=== PATIENT | female | born 1985 | race American Indian/Alaskan Native ===

== ENCOUNTER 2017-05-28 13:22 | Emergency (ER) | payer OTHER ==
[2017-05-28] MEDS ORDERED: DUONEB *Not for PRN Use IH ONE ×2 (13:44→13:50)
[2017-05-28] MEDS ORDERED: DECADRON IM ONE (13:50)
--- NOTE | 2017-05-28 14:30 | Emergency Department Report ---
ED Asthma HPI - General Chief Complaint: Adult Asthma Stated Complaint: ASTHMA/DAVID Time Seen by Provider: 05/28/17 13:51 Source: patient Mode of arrival: Ambulatory Limitations: No Limitations - History of Present Illness Initial Comments: This is a 32-year-old female nontoxic, well nourished in appearance, no acute signs of distress presents to the ED with c/o of wheezing and shortness of breath x2 days. Patient stated this happens yearly during pollen season. Patient denies any cough. Patient denies any recent travels, long car, recent hospital stays. Patient denies any calf pain or calf tenderness. Patient denies any chest pain, short of breath, fever, chills, nausea, vomiting, hemoptysis, numbness, tingling, headache or stiff neck. Patient denies any drug allergies. PMH includes asthma. MD Complaint: "asthma attack", wheezing -: days(s) (2) Asthma History: childhood onset Severity: mild Context: none known Associated Symptoms: none - Related Data Current Asthma Therapy: none Previous Rx's Medication Instructions Recorded Last Taken Type ALBUTEROL Inhaler [ProAir HFA 2 puff IH QID PRN #1 inhalation 01/30/13 Unknown Rx Inhaler] predniSONE [Deltasone] 50 mg PO QDAY #4 tab 01/30/13 Unknown Rx Butalbit/Acetamin/Caff/Codeine 1 cap PO Q6HR PRN #14 cap 09/11/14 Unknown Rx [Fioricet/Codeine 95-194-77-30] Ibuprofen [Motrin 600 MG tab] 600 mg PO Q8H PRN #60 tablet 09/11/14 Unknown Rx Meclizine [Antivert] 25 mg PO TID PRN #10 tablet 09/11/14 Unknown Rx ALBUTEROL Inhaler [ProAir HFA 2 puff IH QID PRN #1 inhalation 05/28/17 Unknown Rx Inhaler] Prednisone [predniSONE 10 mg 10 mg PO .TAPER #1 tab.ds.pk 05/28/17 Unknown Rx (6-Day Pack, 21 Tabs)] Allergies Allergy/AdvReac Type Severity Reaction Status Date / Time No Known Allergies Allergy Unverified 01/30/13 09:59 ED Review of Systems ROS: Stated complaint: ASTHMA/DAVID Other details as noted in HPI Constitutional: denies: chills, fever Eyes: denies: eye pain, eye discharge, vision change ENT: denies: ear pain, throat pain Respiratory: shortness of breath, wheezing. denies: cough Cardiovascular: denies: chest pain, palpitations Endocrine: no symptoms reported Gastrointestinal: denies: abdominal pain, nausea, diarrhea Genitourinary: denies: urgency, dysuria, discharge Musculoskeletal: denies: back pain, joint swelling, arthralgia Skin: denies: rash, lesions Neurological: denies: headache, weakness, paresthesias Psychiatric: denies: anxiety, depression Hematological/Lymphatic: denies: easy bleeding, easy bruising ED Past Medical Hx - Past Medical History Previous Medical History?: Yes Hx Asthma: Yes - Surgical History Past Surgical History?: Yes Additional Surgical History: - Social History Smoking Status: Never Smoker Substance Use Type: Prescribed - Medications Home Medications: Home Medications Medication Instructions Recorded Confirmed Last Taken Type ALBUTEROL Inhaler [ProAir HFA 2 puff IH QID PRN #1 inhalation 01/30/13 Unknown Rx Inhaler] predniSONE [Deltasone] 50 mg PO QDAY #4 tab 01/30/13 Unknown Rx Butalbit/Acetamin/Caff/Codeine 1 cap PO Q6HR PRN #14 cap 09/11/14 Unknown Rx [Fioricet/Codeine 99-816-79-30] Ibuprofen [Motrin 600 MG tab] 600 mg PO Q8H PRN #60 tablet 09/11/14 Unknown Rx Meclizine [Antivert] 25 mg PO TID PRN #10 tablet 09/11/14 Unknown Rx ALBUTEROL Inhaler [ProAir HFA 2 puff IH QID PRN #1 inhalation 05/28/17 Unknown Rx Inhaler] Prednisone [predniSONE 10 mg 10 mg PO .TAPER #1 tab.ds.pk 05/28/17 Unknown Rx (6-Day Pack, 21 Tabs)] ED Physical Exam - General Limitations: No Limitations General appearance: alert, in no apparent distress - Head Head exam: Present: atraumatic, normocephalic - Eye Eye exam: Present: normal appearance Pupils: Present: normal accommodation - ENT ENT exam: Present: normal exam, normal orophraynx, mucous membranes moist, TM's normal bilaterally, normal external ear exam - Neck Neck exam: Present: normal inspection, full ROM. Absent: tenderness, meningismus - Respiratory Respiratory exam: Present: normal lung sounds bilaterally, wheezes (bilateral upper and lower lobes). Absent: respiratory distress, rales, rhonchi, stridor, chest wall tenderness, accessory muscle use, decreased breath sounds, prolonged expiratory - Cardiovascular Cardiovascular Exam: Present: regular rate, normal rhythm, normal heart sounds. Absent: irregular rhythm, systolic murmur, diastolic murmur, rubs, gallop - GI/Abdominal GI/Abdominal exam: Present: soft, normal bowel sounds. Absent: distended, tenderness, guarding, rebound, rigid, diminished bowel sounds - Rectal Rectal exam: Present: deferred - Extremities Exam Extremities exam: Present: normal inspection, full ROM, normal capillary refill. Absent: tenderness - Back Exam Back exam: Present: normal inspection, full ROM - Neurological Exam Neurological exam: Present: alert, oriented X3, normal gait - Psychiatric Psychiatric exam: Present: normal affect, normal mood - Skin Skin exam: Present: warm, dry, intact, normal color. Absent: rash ED Course Vital Signs 05/28/17 05/28/17 05/28/17 13:41 13:56 14:34 Temperature 98.1 F Pulse Rate 95 H Pulse Rate [ 81 81 Posterior Bilateral Throughout] Respiratory 24 Rate Respiratory 20 18 Rate [Posterior Bilateral Throughout] Blood Pressure 146/96 O2 Sat by Pulse 99 Oximetry - Reevaluation(s) Reevaluation #1: 05/28/17 14:29 Patient is speaking in full sentences with no signs of distress noted. ED Medical Decision Making - Medical Decision Making This is a 32-year-old female that presents with asthma exacerbation. Patient is stable and was examined by me. Chest x-ray has been obtained and dictated by the radiologist within normal limits. Patient is notified of the x-ray report with no questions noted by the patient. Patient did receive DuoNeb and steroids in the ED which patient the symptoms has resolved and subsided. Posttreatment and there is no wheezing upon auscultation. Patient is discharged with albuterol and prednisone. Patient was referred to Follow-up with a primary care doctor in 3-5 days or if symptoms worsen and continue return to emergency room as soon as possible. At time of discharge, the patient does not seem toxic or ill in appearance. No acute signs of distress noted. Patient agrees to discharge treatment plan of care. No further questions noted by the patient. This chart is dictated with using [employer] Dictation Program Critical care attestation.: If time is entered above; I have spent that time in minutes in the direct care of this critically ill patient, excluding procedure time. ED Disposition Clinical Impression: Asthma exacerbation Qualifiers: Asthma severity: mild Asthma persistence: intermittent Qualified Code(s): J45.21 - Mild intermittent asthma with (acute) exacerbation Disposition: TO HOME OR SELFCARE Is pt being admited?: No Does the pt Need Aspirin: No Condition: Stable Instructions: Asthma (ED) Additional Instructions: Follow-up with a primary care doctor in 3-5 days or if symptoms worsen and continue return to emergency room as soon as possible. Prescriptions: ALBUTEROL Inhaler [ProAir HFA Inhaler] 2 puff IH QID PRN #1 inhalation PRN Reason: Shortness Of Breath Prednisone [predniSONE 10 mg (6-Day Pack, 21 Tabs)] 10 mg PO .TAPER #1 tab.ds.pk Referrals: PRIMARY CAREMD [Primary Care Provider] - 3-5 Days ANTHONY ARREDONDO MD [Staff Physician] - 3-5 Days [facility] [Outside] - 3-5 Days [facility] [Outside] - 3-5 Days Forms: Work/School Release Form(ED)
--- NOTE | 2017-05-28 16:35 | XRay Report ---
FINAL REPORT EXAM: XR CHEST ROUTINE 2V HISTORY: asthma with upper back pain, chest tightness TECHNIQUE: Two views of the chest Comparison: None FINDINGS: Normal heart size. Lungs are clear and well expanded without focal infiltrate or consolidation. Lung volumes are normal to slightly increased. Are ill-defined nodules projecting over each lung base most suggestive of patient's nipples. No pleural effusion. Unremarkable thoracic spine. IMPRESSION: No acute cardiopulmonary disease. No significant air trapping.
[2017-05-28 17:00] VITALS: BP 119/74
== END 2017-05-28 17:01 | disposition home or self-care (01) ==
LOC: ED 13:22
DX: J45.901 Unspecified asthma with (acute) exacerbation (principal)
CPT/HCPCS: 71046; 94640; 96372; 99283; J1100

== ENCOUNTER 2018-10-09 17:41 | Emergency (ER) | payer OTHER ==
[2018-10-09] MEDS ORDERED: TYLENOL PO ONE (19:07)
[2018-10-09] MEDS ORDERED: PROVENTIL IH ONE (19:07)
--- NOTE | 2018-10-09 19:07 | Emergency Department Report ---
Minor Respiratory - HPI Chief Complaint: Adult Asthma Stated Complaint: ASTHMA ATTACK Time Seen by Provider: 10/09/18 18:43 Duration: 3 Days Pain Location: Chest Severity: mild Minor Respiratory: Yes Able to Tolerate Fluids, No Rhinorrhea, No Sore Throat, No Ear Pain, No Cough, No Sick Contacts, No Hemoptysis, No Chest Pain, No Shortness of Breath, No Fever Other History: 33 YO AA FEMALE WITH ASTHMA WHO COMES IN WHEEZING. NO FEVER O CHILLS. NO PURULENT SPUTUM. NO CP. NO SOB. AMBULATING WITHOUT DIFFICULTY. 23 W WITH UNCOMPLICATED . ED Review of Systems ROS: Stated complaint: ASTHMA ATTACK Other details as noted in HPI Comment: All other systems reviewed and negative ED Past Medical Hx - Past Medical History Previous Medical History?: Yes Hx Asthma: Yes - Surgical History Past Surgical History?: Yes Additional Surgical History: - Family History Family history: no significant - Social History Smoking Status: Never Smoker Substance Use Type: Prescribed - Medications Home Medications: Home Medications Medication Instructions Recorded Confirmed Last Taken Type ALBUTEROL Inhaler (OR & NICU) 2 puff IH QID PRN #1 inhalation 01/30/13 Unknown Rx [ProAir HFA Inhaler] predniSONE [Deltasone] 50 mg PO QDAY #4 tab 01/30/13 Unknown Rx Butalbit/Acetamin/Caff/Codeine 1 cap PO Q6HR PRN #14 cap 09/11/14 Unknown Rx [Fioricet/Codeine 43-223-49-30] Ibuprofen [Motrin 600 MG tab] 600 mg PO Q8H PRN #60 tablet 09/11/14 Unknown Rx Meclizine [Antivert] 25 mg PO TID PRN #10 tablet 09/11/14 Unknown Rx ALBUTEROL Inhaler (OR & NICU) 2 puff IH QID PRN #1 inhalation 05/28/17 Unknown Rx [ProAir HFA Inhaler] Prednisone [predniSONE 10 mg 10 mg PO .TAPER #1 tab.ds.pk 05/28/17 Unknown Rx (6-Day Pack, 21 Tabs)] ALBUTEROL NEB's [Proventil 0.083% 2.5 mg IH TID PRN #1 box 10/09/18 Unknown Rx NEBS] predniSONE [Deltasone] 50 mg PO QDAY #5 tab 08/27/19 Unknown Rx Minor Respiratory Exam - Exam General: Vital signs noted. No distress. Alert and acting appropriately. HEENT: Yes Moist Mucous Membranes, No Pharyngeal Erythema, No Pharyngeal Exudates, No Rhinorrhea, No Conjuctival Injection, No Frontal Tenderness, No Maxillary Tenderness Ear: Neither TM Bulge, Neither TM Erythema, Neither EAC Pain, Neither EAC Discharge Neck: Yes Supple, No Adenopathy Lungs: Yes Good Air Exchange, Yes Wheezes, No Ronchi, No Stridor, No Cough Abdomen: Yes Normal Bowel Sounds, No Tenderness, No Peritoneal Signs Skin: Yes Rash Neurologic: Alert and oriented, no deficits. Musculoskeletal: Unremarkable. ED Medical Decision Making - Medical Decision Making DUONEB WITH RELIEF NO INDICATION FOR ANTIBIOTICS. NO FEVER/CHILLS/ CP/SOB/ SPUTUM CALLED OB THIS AM WHO COULD NOT SEE HERE SHE USES HOME ALB INHALER. DISCUSSED WITH PT THE FACT THAT SHE WOULD BENEFIT FROM A SHORT COURSE OF PRE DNISONE BUT THAT SHE SHOULD CALL OB IN AM AND GET IT APPROVED. - Differential Diagnosis asthma w or wo infection Critical care attestation.: If time is entered above; I have spent that time in minutes in the direct care of this critically ill patient, excluding procedure time. ED Disposition Clinical Impression: Asthma Disposition: DC-01 TO HOME OR SELFCARE Is pt being admited?: No Does the pt Need Aspirin: No Condition: Stable Instructions: Asthma (ED) Additional Instructions: CALL OBGYN IN THE AM AND GET APPROVAL FOR THE STEROIDS BEFORE STARTING THEM. ASK TO SPEAK WITH THE NURSE, SHE SHOULD BE ABLE TO GET THE DOCTOR WHO CAN DISCUSS WITH YOU NEBULIZER ORDERED TONIGHT Prescriptions: predniSONE [Deltasone] 50 mg PO QDAY #5 tab ALBUTEROL NEB's [Proventil 0.083% NEBS] 2.5 mg IH TID PRN #1 box PRN Reason: Wheezing Referrals: SHIRA PRYOR MD [Staff Physician] - 3-5 Days [facility] [Outside] - 3-5 Days Time of Disposition: 19:12
[2018-10-09 20:36] VITALS: BP 128/75
== END 2018-10-09 20:35 | disposition home or self-care (01) ==
LOC: ED 17:41
DX: O99.512 Diseases of the respiratory system complicating pregnancy, second trimester (principal); J45.909 Unspecified asthma, uncomplicated; Z79.899 Other long term (current) drug therapy; Z3A.23 23 weeks gestation of pregnancy

== ENCOUNTER 2018-12-31 17:51 | Inpatient (IN) | payer OTHER ==
[2018-12-31] MEDS ORDERED: LACTATED RINGERS 500 ML IV ONE (19:00)
[2018-12-31] MEDS ORDERED: LACTATED RINGERS 1,000 ML IV ONE (19:20)
[2018-12-31 19:35] LABS: Hemoglobin 10.7 gm/dl (10.1-14.3); Mean Corpuscular HGB Conc 33 % (30-34); Mean Corpuscular Volume 81 fl (79-97); Platelet Count 205 K/mm3 (140-440); Red Blood Count 4.08 M/mm3 (3.65-5.03); Red Cell Distribution Width 16.7 % (13.2-15.2)
[2018-12-31] MEDS ORDERED: FAMOTIDINE 20 MG/2 ML INJ IV SCH (20:34)
[2018-12-31] MEDS ORDERED: BICITRA ORAL LIQD 30ML PO SCH (20:34)
[2018-12-31] MEDS ORDERED: METOCLOPRAMIDE 10 MG/2 ML INJ IV SCH (20:34)
--- NOTE | 2018-12-31 20:43 | Ultrasound Report ---
US OB limited INDICATION / CLINICAL INFORMATION: Unstable lie, SROM. COMPARISON: None available. FINDINGS: Single, viable intrauterine , currently in breech presentation. heart rate 135. Amniotic fluid volume is abnormally increased, with a fluid index of 32 cm. IMPRESSION: 1. Increased amniotic fluid volume. 2. Breech presentation. Signer Name: Abdirahman Patterson MD Signed: 12/31/2018 8:39 PM Workstation Name: [id number]
--- NOTE | 2018-12-31 20:55 | Anesthesia Day of Surgery ---
Anesthesia Day of Surgery - Day of Surgery Patient Examined: Yes Patient H&P Reviewed: Yes Patient is NPO: Yes
--- NOTE | 2018-12-31 20:55 | Anesthesia Consultation ---
Anesthesia Consult and Med Hx Date of service: 12/31/18 - Airway Anesthetic Teeth Evaluation: Good ROM Head & Neck: Adequate Mental/Hyoid Distance: Adequate Mallampati Class: Class II Intubation Access Assessment: Probably Good - Pulmonary Exam CTA: Yes - Cardiac Exam Cardiac Exam: RRR - Pre-Operative Health Status ASA Pre-Surgery Classification: ASA2 Proposed Anesthetic Plan: Spinal - Pulmonary Hx Asthma: Yes (last attack 11/2018) - Cardiovascular System Hx Hypertension: No - Central Nervous System Hx Seizures: No Hx Psychiatric Problems: No - Endocrine Hx Renal Disease: No Hx Hypothyroidism: No Hx Hyperthyroidism: No - Hematic Hx Anemia: No Hx Sickle Cell Disease: No - Other Systems Hx Alcohol Use: No
[2018-12-31] MEDS ORDERED: LACTATED RINGERS 1,000 ML IV SCH (21:00)
[2018-12-31] MEDS ORDERED: ceFAZolin/Water 2 GM/20 ML 2 GM/20 ML SYRINGE IV NR (21:00)
[2018-12-31] MEDS ORDERED: OXYTOCIN 20 UNIT/1000ML DRIP 20 UNITS/1,000 ML BAG IV SCH ×2 (21:00→23:45)
[2018-12-31] MEDS ORDERED: SODIUM CHLORIDE 0.9% IRR 1,500 ML BOTTLE IR ONE (21:55)
[2018-12-31] MEDS ORDERED: WATER FOR IRRIG STERILE 1,500 ML BOTTLE IR ONE (21:55)
--- NOTE | 2018-12-31 21:59 | History and Physical Report ---
History of Present Illness Date of examination: 12/31/18 Date of admission: 12/31/18 20:50 Chief complaint: SROM History of present illness: Pt is a 33yo BF EDC 01/30/19; EGA 35 5/7 weeks presents to [facility] complaining of leaking fluid, confirmed on exam. Ob u/s showed ERLIN 31.9 and Breech. She received care at [facility] since 16 weeks and co-managed by [facility] for polyhydramnios and previous C Section. records are available, but GBS is unknown. Past History Past Medical History: asthma Past Surgical History: section Social history: no significant social history - Obstetrical History Expected Date of Delivery: 01/30/19 Actual Gestation: 35 Week(s) 5 Day(s) : 3 Medications and Allergies Allergies Allergy/AdvReac Type Severity Reaction Status Date / Time No Known Allergies Allergy Unverified 01/30/13 09:59 Home Medications Medication Instructions Recorded Confirmed Last Taken Type ALBUTEROL Inhaler (OR & NICU) 2 puff IH QID PRN #1 inhalation 01/30/13 Unknown Rx [ProAir HFA Inhaler] predniSONE [Deltasone] 50 mg PO QDAY #4 tab 01/30/13 Unknown Rx Butalbit/Acetamin/Caff/Codeine 1 cap PO Q6HR PRN #14 cap 09/11/14 Unknown Rx [Fioricet/Codeine 35-949-97-30] Ibuprofen [Motrin 600 MG tab] 600 mg PO Q8H PRN #60 tablet 09/11/14 Unknown Rx Meclizine [Antivert] 25 mg PO TID PRN #10 tablet 09/11/14 Unknown Rx ALBUTEROL Inhaler (OR & NICU) 2 puff IH QID PRN #1 inhalation 05/28/17 Unknown Rx [ProAir HFA Inhaler] Prednisone [predniSONE 10 mg 10 mg PO .TAPER #1 tab.ds.pk 05/28/17 Unknown Rx (6-Day Pack, 21 Tabs)] ALBUTEROL NEB's [Proventil 0.083% 2.5 mg IH TID PRN #1 box 10/09/18 Unknown Rx NEBS] methylPREDNISolone [Medrol 4MG 4 mg PO FS #1 tab.ds.pk 10/09/18 Unknown Rx DOSEPAK (21 tabs)] Active Meds: Active Medications Citric Acid/Sodium Citrate (Bicitra) 30 ml PO ONCE CHANNING Stop: 01/01/19 20:33 Last Admin: 12/31/18 21:26 Dose: 30 ml Documented by: Famotidine (Pepcid) 20 mg IV ONCE CHANNING Stop: 01/01/19 20:33 Last Admin: 12/31/18 21:26 Dose: 20 mg Documented by: Oxytocin/Sodium Chloride (Pitocin/Ns 20 Unit/1000ml Drip) 20 units in 1,000 mls @ 0 mls/hr IV TITR CHANNING Lactated Ringer's (Lactated Ringers) 1,000 mls @ 2,250 mls/hr IV PREOP CHANNING Stop: 01/01/19 21:27 Last Admin: 12/31/18 21:27 Dose: 2,250 mls/hr Documented by: Cefazolin Sodium (Ancef/Sterile Water 2 Gm/20 Ml) 2 gm in 20 mls @ 80 mls/hr IV PREOP NR; Protocol Stop: 01/01/19 20:59 Last Admin: 12/31/18 21:42 Dose: 80 mls/hr Documented by: Metoclopramide HCl (Reglan) 10 mg IV ONCE CHANNING Stop: 01/01/19 20:33 Last Admin: 12/31/18 21:26 Dose: 10 mg Documented by: Review of Systems All systems: negative - Vital Signs Vital signs: Vital Signs Pulse BP 82 123/78 12/31/18 18:08 12/31/18 18:08 Temp Pulse Resp BP Pulse Ox 98.1 F 68 18 122/72 12/31/18 19:48 12/31/18 19:39 12/31/18 19:48 12/31/18 19:39 - Physical Exam Breasts: Positive: deferred Cardiovascular: Regular rate Lungs: Positive: Clear to auscultation Abdomen: Positive: normal appearance Genitourinary (Female): Positive: normal external genitalia Vagina: Positive: normal moisture Uterus: Positive: enlarged Extremities: Positive: normal - Obstetrical FHR: category 1 Uterine Contraction Pattern: Irregular Uterine Tone Measurement Phase: Contraction Uterine Contraction Intensity: Mild Results Result Diagrams: 12/31/18 19:10 Abnormal lab results 12/31/18 Range/Units 19:10 MCH 26 L (28-32) pg RDW 16.7 H (13.2-15.2) % All other labs normal. Ultrasound: report reviewed (Breech) Assessment and Plan - Patient Problems (1) 35 weeks gestation of Onset Date: 12/31/18 Current Visit: Yes Status: Acute Plan to address problem: A: IUP @ 35 weeks PPROM labor Previous C Section Breech presentation P: Admit to L&D for Repeat C Section (2) labor in third trimester Onset Date: 12/31/18 Current Visit: Yes Status: Acute Qualifiers: labor delivery status: with delivery in third trimester Fetus number: single or unspecified fetus Qualified Code(s): O60.14X0 - labor third trimester with delivery third trimester, not applicable or unspecified (3) Breech presentation Onset Date: 12/31/18 Current Visit: Yes Status: Acute Qualifiers: Fetus number: single or unspecified fetus Qualified Code(s): O32.1XX0 - Maternal care for breech presentation, not applicable or unspecified (4) Polyhydramnios affecting in third trimester Onset Date: 12/31/18 Current Visit: Yes Status: Acute
[2018-12-31] MEDS ORDERED: PHENYLEPHRINE/NS 1,000 MCG/10 ML SYRINGE (OR USE) IV ONE (22:19)
[2018-12-31] MEDS ORDERED: KETOROLAC 30 MG/1 ML INJ ONE (22:19)
[2018-12-31] MEDS ORDERED: BUPIVACAINE/PF (0.5%) 5 MG/1 ML 30 ML VIAL INFILTRATI ONE (22:19)
[2018-12-31] MEDS ORDERED: DEXMEDETOMIDINE 200 MCG/2 ML VIAL IV ONE (22:19)
[2018-12-31] MEDS ORDERED: OXYTOCIN 10 UNIT/1 ML INJ ONE (22:19)
[2018-12-31] MEDS ORDERED: LACTATED RINGERS 1,000 ML ONE (22:29)
--- NOTE | 2018-12-31 23:06 | Operative Report ---
Operative Report Operative Report: Date of procedure: 12/31/2018 Pre-operative diagnosis: 1. Intrauterine at 35 5/7 weeks 2. Previ ous C Section 3. Premature Rupture of Membranes 4. Labor 5. Breech presentation Post-operative diagnosis: same Procedure name(s): Repeat low transverse section Surgeon: Roberto Carlos Mendoza MD Shipping And Receiving Associate: None Anesthesia: Spinal anesthesia by Jose Juan Mays CRNA EBL: 500 mL's Findings: A 2547 gm male infant Apgars 8 at 1 minute 9 at 5 minutes. Copious clear amniotic fluid. Normal uterus. Normal tubes and ovaries bilaterally. Procedure: After the patient was prepped and draped in usual sterile fashion, and after satisfactory level of spinal anesthesia was obtained, the skin knife was used to make a transverse skin incision through the previous skin scar. The incision was incised down to layer of the fascia, which was nicked in the midline and extended laterally using the Bovie cautery. The rectus muscles were dissected off the rectus fascia both superiorly and inferiorly. The rectus bellies in the midline, and the peritoneum was entered under direct visualization. The peritoneal incision was extended superiorly and inferiorly. A bladder flap was created and the bladder blade was then placed. The uterus was scored in a curvilinear linear fashion, entered in the midline revealing copious clear amniotic fluid. The 's head was delivered onto the surgical field with the aid of a vacuum, and the oropharynx and nasopharynx were bulb suctioned. The rest of the 's body was delivered, cord was doubly clamped and cut and the was handed to the awaiting respiratory team. Cord blood was then obtained. The placenta was manually removed from the uterus, and the uterus removed from its normal anatomical position. After gentle uterine lavage, the incision was inspected and found to be without extensions. It was then closed in 2 layers using 0 Vicryl suture in a running interlocking fashion, the second layer imbricating the first. After good hemostasis was achieved, copious amounts or irrigation was performed, and the gutters were suctioned free of blood and blood clots. The peritoneum was re-approximated using 3-0 Vicryl suture in a running interlocking fashion, and then the rectus muscles were re- approximated using 3-0 Vicryl suture in a [id number] configuration. The fascia was then re-approximated using 0 Vicryl suture in running interlocking fashion. The subcutaneous layer was made hemostatic using Bovie cautery, and the skin edges re-approximated using 4-0 Vicryl suture in a sub-cuticular fashion. Patient tolerated the procedure well was transported to recovery in stable condition.
[2018-12-31] MEDS ORDERED: PROMETHAZINE 25 MG RECT SUPP PR PRN (23:15)
[2018-12-31] MEDS ORDERED: HYDROcodone/ACETAMINOPHEN 5-325 MG TAB PO PRN (23:15)
[2018-12-31] MEDS ORDERED: SIMETHICONE 80 MG CHEW TAB PO PRN (23:15)
[2018-12-31] MEDS ORDERED: KETOROLAC 30 MG/1 ML INJ IV PRN (23:15)
[2018-12-31] MEDS ORDERED: ACETAMINOPHEN 325 MG TAB PO PRN (23:15)
[2018-12-31] MEDS ORDERED: LANOLIN/ZINC/DIMETHICONE (LANSINOH) 7 GM TP PRN (23:15)
[2018-12-31] MEDS ORDERED: MAGNESIUM HYDROXIDE (MOM) ORAL LIQD UDC PO PRN (23:15)
[2018-12-31] MEDS ORDERED: WITCH HAZEL/ GLYCERIN PAD TP PRN (23:15)
[2018-12-31] MEDS ORDERED: ONDANSETRON 4 MG/2 ML INJ IV PRN (23:15)
[2018-12-31] MEDS ORDERED: NALOXONE 0.4 MG/1 ML INJ IV PRN (23:15)
[2018-12-31] MEDS ORDERED: SENNOSIDES 8.6 MG TAB PO PRN (23:15)
[2018-12-31] MEDS ORDERED: NalbUPHINE 10 MG/1 ML INJ IV PRN (23:17)
--- NOTE | 2018-12-31 23:17 | Post Anesthesia Evaluation ---
- Post Anesthesia Evaluation Patient Participated: Yes Airway Patent: Yes Stable Respiratory Function: Yes Nausea/Vomiting: No Temp > 96.8F: Yes Pain Manageable: Yes Adequeate Hydration: Yes Anesthesia Complications: No Block Receding Appropriately: Yes
[2019-01-01] MEDS: KETOROLAC 30 MG/1 ML INJ IV SCH ×4 (00:28→18:13)
[2019-01-01] MEDS: ACETAMINOPHEN 325 MG TAB PO SCH ×4 (00:28→18:31)
[2019-01-01] MEDS ORDERED: D5W/LACTATED RINGERS 1,000 ML IV SCH (05:23)
[2019-01-01] MEDS: ceFAZolin/NS 1 GM/50 ML 1 GM/50 ML BAG IV SCH ×2 (05:40→13:54)
[2019-01-01] MEDS ORDERED: MEASLES, MUMPS & RUBELLA 12,500 UNIT/0.5 ML VACCINE SUB-Q ONE (06:00)
[2019-01-01] MEDS ORDERED: TETANUS,DIPH,PERTUSS(ACELL) VACCINE 0.5 ML SYRINGE IM ONE (06:00)
[2019-01-01] MEDS ORDERED: LORazepam 2 MG/ML VIAL IV PRN (07:30)
[2019-01-01] MEDS: FERROUS SULFATE 325 MG TAB PO SCH (09:26)
[2019-01-01] MEDS: PRENATAL VIT27-FE FUMARATE-FOLIC ACID VIT TAB PO SCH (09:26)
[2019-01-01 11:37] LABS: Hematocrit 28.3 % (30.3-42.9); Hemoglobin 9.2 gm/dl (10.1-14.3)
--- NOTE | 2019-01-01 14:00 | Progress Note ---
Assessment and Plan - Patient Problems (1) 35 weeks gestation of Onset Date: 12/31/18 Current Visit: Yes Status: Resolved (2) labor in third trimester Onset Date: 12/31/18 Current Visit: Yes Status: Resolved Qualifiers: labor delivery status: with delivery in third trimester F etus number: single or unspecified fetus Qualified Code(s): O60.14X0 - labor third trimester with delivery third trimester, not applicable or unspecified (3) Breech presentation Onset Date: 12/31/18 Current Visit: Yes Status: Resolved Qualifiers: Fetus number: single or unspecified fetus Qualified Code(s): O32.1XX0 - Maternal care for breech presentation, not applicable or unspecified (4) Polyhydramnios affecting in third trimester Onset Date: 12/31/18 Current Visit: Yes Status: Resolved (5) Status post Onset Date: 01/01/19 Current Visit: Yes Status: Resolved Plan to address problem: A: S/P Repeat C Section - POD #1 Doing well Asymptomatic anemia - stable P: Continue RPOC Anticipate discharge in 24-48hrs Subjective - Subjective Date of service: 01/01/19 Principal diagnosis: s/p Repeat C Section - POD #1 Interval history: Pt is feeling well without complaints. Bleeding improved. Patient reports: appetite normal, voiding normally, pain well controlled, flatus, ambulating normally, no dizzy ambulation, no nauseated [place]: doing well, nursing well, bottle feeding Objective - Vital Signs Latest vital signs: Vital Signs Temp Pulse Resp BP BP Pulse Ox 01/01/19 11:15 98.4 F 77 16 113/63 96 01/01/19 07:28 98.2 F 72 20 111/67 98 01/01/19 03:30 97.5 F L 69 18 99/63 100 01/01/19 03:03 97.6 F 01/01/19 02:55 97.6 F 01/01/19 01:54 97.5 F L 01/01/19 01:33 97.4 F L 01/01/19 00:45 94.5 F L 01/01/19 00:40 94.1 F L 01/01/19 00:30 93.3 F L 01/01/19 00:15 59 L 16 90/46 97 01/01/19 00:05 63 16 94/54 96 12/31/18 23:55 58 L 15 87/42 96 12/31/18 23:40 61 16 83/47 97 12/31/18 23:25 67 16 85/41 97 12/31/18 23:20 59 L 16 89/42 97 12/31/18 23:15 64 12 91/41 12/31/18 19:48 98.1 F 18 12/31/18 19:39 68 122/72 12/31/18 18:47 98.7 F 20 12/31/18 18:08 82 123/78 Intake and Output 12/31/18 01/01/19 01/01/19 22:59 06:59 14:59 Intake Total 50 120 Output Total 100 600 Balance -50 -480 Intake: IV 50 ANCEF/NS 1 GM/50 ML 1 gm 50 In 50 ml @ 100 mls/hr IV Q8H [facility] Rx#:[id number] Oral 120 Output: Urine 100 600 Indwelling Catheter 600 Uretheral (Hameed) 100 Other: Total, Intake Amount 120 Total, Output Amount 100 # Voids Void 1 Weight 72.121 kg - Exam Breasts: Present: deferred Abdomen: Present: normal appearance, soft Uterus: Present: normal, firm, fundal height at umbilicus Extremities: Present: normal Incision: Present: normal, dry, intact, dressed - Labs Labs: Abnormal lab results 12/31/18 01/01/19 Range/Units 19:10 11:15 Hgb 9.2 L (10.1-14.3) gm/dl Hct 28.3 L (30.3-42.9) % MCH 26 L (28-32) pg RDW 16.7 H (13.2-15.2) % Laboratory Tests 12/31/18 12/31/18 12/31/18 19:10 19:10 23:55 WBC 7.3 RBC 4.08 Hgb 10.7 Hct 33.0 MCV 81 MCH 26 L MCHC 33 RDW 16.7 H Plt Count 205 Syphilis IgG Antibody Non-reactive Hep Bs Antigen Blood Type B POSITIVE Antibody Screen Negative 01/01/19 01/01/19 11:15 11:15 WBC RBC Hgb 9.2 L Hct 28.3 L MCV MCH MCHC RDW Plt Count Syphilis IgG Antibody Hep Bs Antigen Non-reactive Blood Type Antibody Screen
[2019-01-01] MEDS: IBUPROFEN 800 MG TAB PO PRN (23:33)
[2019-01-02] MEDS: oxyCODONE /ACETAMINOPHEN 5-325MG TAB PO PRN ×2 (02:12→21:44)
[2019-01-02] MEDS: KETOROLAC 30 MG/1 ML INJ IV SCH ×2 (03:03→06:25)
[2019-01-02] MEDS: ACETAMINOPHEN 325 MG TAB PO SCH ×2 (03:03→06:26)
[2019-01-02] MEDS: IBUPROFEN 800 MG TAB PO PRN ×2 (05:22→12:49)
[2019-01-02] MEDS: FERROUS SULFATE 325 MG TAB PO SCH (09:04)
[2019-01-02] MEDS: PRENATAL VIT27-FE FUMARATE-FOLIC ACID VIT TAB PO SCH (09:04)
--- NOTE | 2019-01-02 10:45 | Progress Note ---
Assessment and Plan - Patient Problems (1) 35 weeks gestation of Onset Date: 12/31/18 Current Visit: Yes Status: Resolved (2) labor in third trimester Onset Date: 12/31/18 Current Visit: Yes Status: Resolved Qualifiers: labor delivery status: with delivery in third trimester F etus number: single or unspecified fetus Qualified Code(s): O60.14X0 - labor third trimester with delivery third trimester, not applicable or unspecified (3) Breech presentation Onset Date: 12/31/18 Current Visit: Yes Status: Resolved Qualifiers: Fetus number: single or unspecified fetus Qualified Code(s): O32.1XX0 - Maternal care for breech presentation, not applicable or unspecified (4) Polyhydramnios affecting in third trimester Onset Date: 12/31/18 Current Visit: Yes Status: Resolved (5) Status post Onset Date: 01/01/19 Current Visit: Yes Status: Resolved Plan to address problem: A: S/P Repeat C Section - POD #2 Doing well Asymptomatic anemia - stable P: May go home today. Subjective - Subjective Date of service: 01/02/19 Principal diagnosis: s/p Repeat C Section - POD #2 Interval history: Pt is feeling well without complaints. She is tolerating a reg diet without nausea or vomiting, ambulating and voiding without difficulty. She wants to go home today. Patient reports: appetite normal, voiding normally, pain well controlled, flatus, ambulating normally, no dizzy ambulation, no nauseated [place]: doing well, nursing well, bottle feeding Objective - Vital Signs Latest vital signs: Vital Signs Temp Pulse Resp BP Pulse Ox 01/02/19 08:22 97.9 F 62 18 106/66 100 01/01/19 22:35 98.2 F 85 20 113/63 99 01/01/19 17:12 98.9 F 76 18 103/57 96 01/01/19 11:15 98.4 F 77 16 113/63 96 Intake and Output 01/01/19 01/02/19 01/02/19 22:59 06:59 14:59 Intake Total 400 240 Output Total 800 600 Balance -400 -360 Intake: Oral 300 240 Intake, Free Water 100 Output: Urine 800 600 Void 800 600 Other: Total, Intake Amount 300 240 Total, Output Amount 500 600 # Voids Void 1 1 - Exam Breasts: Present: deferred Abdomen: Present: normal appearance, soft Uterus: Present: normal, firm, fundal height below umbilicus Extremities: Present: normal Incision: Present: normal, dry, intact - Labs Labs: Abnormal lab results 01/01/19 Range/Units 11:15 Hgb 9.2 L (10.1-14.3) gm/dl Hct 28.3 L (30.3-42.9) %
--- NOTE | 2019-01-02 12:24 | Discharge Summary ---
Providers - Providers Date of Admission: 12/31/18 22:23 Date of discharge: 01/02/19 Attending physician: SHIRA PRYOR Primary care physician: SHIRA PRYOR Hospitalization Reason for admission: IUP - , labor, other (IUP @ 35 5/7 weeks; PPROM; Previous C Section; Breech) Delivery: Procedure: section, repeat low transverse Episiotomy: none Laceration: none Incision: normal, dry, intact Other procedures: none complications: none Discharge diagnosis: delivery baby: male Hospital course: Pt is a 33yo BF EDC 01/30/19; EGA 35 5/7 weeks who presented to [facility] complaining of leaking fluid, confirmed on exam. Ob u/s showed ERLIN 31.9 and Breech presentation. She received care at [facility] since 16 weeks and co-managed by [facility] for polyhydramnios and previous C Section. She underwent an uncomplicated Repeat C Section and post operative course was unremarkable. By POD #2 she was tolerating a reg diet without nausea or vomiting, ambulating and voiding without difficulty. She was therefore discharged to home on POD #2 in stable condition. Condition at discharge: Good Disposition: DC-01 TO HOME OR SELFCARE - Discharge Diagnoses (1) 35 weeks gestation of Status: Resolved (2) labor in third trimester Status: Resolved Qualifiers: labor delivery status: with delivery in third trimester Fetus number: single or unspecified fetus Qualified Code(s): O60.14X0 - labor third trimester with delivery third trimester, not applicable or unspecified (3) Breech presentation Status: Resolved Qualifiers: Fetus number: single or unspecified fetus Qualified Code(s): O32.1XX0 - Maternal care for breech presentation, not applicable or unspecified (4) Polyhydramnios affecting in third trimester Status: Resolved (5) Status post Status: Resolved Plan - Discharge Medications Prescriptions: Ferrous Sulfate [Feosol 325 MG tab] 325 mg PO BID #60 tablet Ibuprofen [Motrin 800 MG tab] 800 mg PO Q6H PRN #30 tablet PRN Reason: Pain, Mild (1-3) HYDROcodone/APAP 5-325 [[place] 5-325 mg TAB] 1 each PO Q6HR PRN #30 tablet PRN Reason: Pain, Moderate (4-6) Vit-Fe Fumar-FA [ Vitamin] 1 each PO QDAY #30 tablet - Provider Discharge Summary Activity: routine, no sex for 6 weeks, no heavy lifting 4 weeks, no strenuous exercise Diet: routine Instructions: routine Additional instructions: [] Smoking cessation referral if applicable(refer to patient education folder for contact #) [] Refer to [facility] Booklet Call your doctor immediately for: * Fever > 100.5 * Heavy vaginal bleeding ( >1 pad per hour) * Severe persistent headache * Shortness of breath * Reddened, hot, painful area to leg or breast * Drainage or odor from incision. * Keep incision clean and dry at all times and follow doctor's instructions regarding bathing/showering - Follow up plan Follow up: SHIRA PRYOR MD [Primary Care Provider] - 14 Days
[2019-01-02] MEDS ORDERED: NEOMY 3.5 MG/BACIT 400 UNITS/POLY B 5000 UNITS/GM OINT PACKET TP SCH (23:00)
[2019-01-03] MEDS: oxyCODONE /ACETAMINOPHEN 5-325MG TAB PO PRN (09:09)
[2019-01-03] MEDS: PRENATAL VIT27-FE FUMARATE-FOLIC ACID VIT TAB PO SCH (09:09)
[2019-01-03] MEDS: FERROUS SULFATE 325 MG TAB PO SCH (09:10)
[2019-01-03 15:08] VITALS: BP 102/60
== END 2019-01-03 18:00 | disposition home or self-care (01) | DRG 786 ==
LOC: TRG 17:51 → APU 20:50 → UNDOADMIN 20:50 → APU 22:23 → INR 22:30 → UNDOADMIN 22:30 → INR 23:33 → APU 23:33 → OB 01-01 03:15
PROVIDERS: ADMIT Obstetrics & Gynecology; ATTEND Obstetrics & Gynecology
PROC: 10D00Z1 Extraction of Products of Conception, Low, Open Approach (ICD-10-PCS; principal; 2018-12-31)
PROC: 3E0234Z Introduction of Serum, Toxoid and Vaccine into Muscle, Percutaneous Approach (ICD-10-PCS; 2019-01-01)
DX: O32.1XX0 Maternal care for breech presentation, not applicable or unspecified (principal); O60.14X0 Preterm labor third trimester with preterm delivery third trimester, not applicable or unspecified; O34.211 Maternal care for low transverse scar from previous cesarean delivery; O40.3XX0 Polyhydramnios, third trimester, not applicable or unspecified; O99.02 Anemia complicating childbirth; O99.52 Diseases of the respiratory system complicating childbirth; O42.913 Preterm premature rupture of membranes, unspecified as to length of time between rupture and onset of labor, third trimester; J45.909 Unspecified asthma, uncomplicated; Z79.899 Other long term (current) drug therapy; Z3A.35 35 weeks gestation of pregnancy; Z37.0 Single live birth; Z23 Encounter for immunization
CPT/HCPCS: 36415; 76815; 85014; 85018; 85027; 86592; 86706; 86850; 86900; 86901; 87116; 90715; G0378; A6250; J0690; J1885; J2370; J2590; J2765; J3490; J7120; J7121

== ENCOUNTER 2020-03-23 02:39 | Emergency (ER) | payer OTHER ==
[2020-03-23] MEDS ORDERED: dexAMETHasone 20 MG/5 ML VIAL IM ONE (02:44)
[2020-03-23] MEDS ORDERED: ALBUTEROL 2.5 MG/3 ML NEBU IH ONE (02:44)
[2020-03-23] MEDS ORDERED: IPRATROPIUM 0.02% NEBU 2.5 ML IH ONE (02:45)
--- NOTE | 2020-03-23 03:30 | Emergency Department Report ---
ED Asthma HPI - General Chief Complaint: Adult Asthma Stated Complaint: ASTHMA Time Seen by Provider: 03/23/20 02:44 Source: patient Mode of arrival: Ambulatory Limitations: No Limitations - History of Present Illness Initial Comments: This is a 34-year-old female nontoxic, well nourished in appearance, no acute signs of distress presents to the ED with c/o of acute on chronic asthma exacerbation. Patient stated she taken her inhaler with minimal relief. Patient denies any cough. Patient denies any sick contact. Patient denies any recent travels, long car, recent hospital stays. Patient denies any calf pain or calf tenderness. Patient denies any chest pain, short of breath, fever, chills, nausea, vomiting, hemoptysis, numbness, tingling, headache or stiff neck. Past medical history includes asthma. MD Complaint: "asthma attack", wheezing -: This morning Severity: mild Context: none known Associated Symptoms: none - Related Data Current Asthma Therapy: inhaled bronchodilator Home Medications Medication Instructions Recorded Confirmed Last Taken ALBUTEROL Inhaler (OR & NICU) 1 puff QDAY 01/01/19 01/01/19 12/30/18 Previous Rx's Medication Instructions Recorded Last Taken Type Albuterol Mdi (or & Nicu Only) 2 puff IH QID PRN #1 inhalation 01/30/13 Unknown Rx [ProAir HFA Inhaler] predniSONE [Deltasone] 50 mg PO QDAY #4 tab 01/30/13 Unknown Rx Butalbit/Acetamin/Caff/Codeine 1 cap PO Q6HR PRN #14 cap 09/11/14 Unknown Rx [Fioricet/Codeine 62-732-24-30] Ibuprofen [Motrin 600 MG tab] 600 mg PO Q8H PRN #60 tablet 09/11/14 Unknown Rx Meclizine [Antivert] 25 mg PO TID PRN #10 tablet 09/11/14 Unknown Rx Albuterol Mdi (or & Nicu Only) 2 puff IH QID PRN #1 inhalation 05/28/17 Unknown Rx [ProAir HFA Inhaler] Prednisone [predniSONE 10 mg 10 mg PO .TAPER #1 tab.ds.pk 05/28/17 Unknown Rx (6-Day Pack, 21 Tabs)] ALBUTEROL NEB's [Proventil 0.083% 2.5 mg IH TID PRN #1 box 10/09/18 Unknown Rx NEBS] methylPREDNISolone [Medrol 4MG 4 mg PO FS #1 tab.ds.pk 10/09/18 Unknown Rx DOSEPAK (21 tabs)] Ferrous Sulfate [Feosol 325 MG tab] 325 mg PO BID #60 tablet 01/02/19 Unknown Rx HYDROcodone/APAP 5-325 [[place] 1 each PO Q6HR PRN #30 tablet 01/02/19 Unknown Rx 5-325 mg TAB] Ibuprofen [Motrin 800 MG tab] 800 mg PO Q6H PRN #30 tablet 01/02/19 Unknown Rx Vit-Fe Fumar-FA [ 1 each PO QDAY #30 tablet 01/02/19 Unknown Rx Vitamin] Albuterol Mdi (or & Nicu Only) 2 puff IH QID PRN #8.5 gram 03/23/20 Unknown Rx [ProAir HFA Inhaler] Prednisone [predniSONE 10 mg 10 mg PO .TAPER #1 tab.ds.pk 03/23/20 Unknown Rx (6-Day Pack, 21 Tabs)] Allergies Allergy/AdvReac Type Severity Reaction Status Date / Time No Known Allergies Allergy Unverified 01/30/13 09:59 ED Review of Systems ROS: Stated complaint: ASTHMA Other details as noted in HPI Constitutional: denies: chills, fever Eyes: denies: eye pain, eye discharge, vision change ENT: denies: ear pain, throat pain Respiratory: wheezing. denies: cough, shortness of breath Cardiovascular: denies: chest pain, palpitations Endocrine: no symptoms reported Gastrointestinal: denies: abdominal pain, nausea, diarrhea Genitourinary: denies: urgency, dysuria, discharge Musculoskeletal: denies: back pain, joint swelling, arthralgia Skin: denies: rash, lesions Neurological: denies: headache, weakness, paresthesias Psychiatric: denies: anxiety, depression Hematological/Lymphatic: denies: easy bleeding, easy bruising ED Past Medical Hx - Past Medical History Previous Medical History?: Yes Hx Hypertension: No Hx Diabetes: No Hx Deep Vein Thrombosis: No Hx Renal Disease: No Hx Sickle Cell Disease: No Hx Seizures: No Hx Asthma: Yes (last attack 11/2018) Hx HIV: No - Surgical History Past Surgical History?: Yes Additional Surgical History: - Social History Smoking Status: Never Smoker - Medications Home Medications: Home Medications Medication Instructions Recorded Confirmed Last Taken Type Albuterol Mdi (or & Nicu Only) 2 puff IH QID PRN #1 inhalation 01/30/13 01/01/19 Unknown Rx [ProAir HFA Inhaler] predniSONE [Deltasone] 50 mg PO QDAY #4 tab 01/30/13 01/01/19 Unknown Rx Butalbit/Acetamin/Caff/Codeine 1 cap PO Q6HR PRN #14 cap 09/11/14 01/01/19 Unknown Rx [Fioricet/Codeine 28-686-12-30] Ibuprofen [Motrin 600 MG tab] 600 mg PO Q8H PRN #60 tablet 09/11/14 01/01/19 Unknown Rx Meclizine [Antivert] 25 mg PO TID PRN #10 tablet 09/11/14 01/01/19 Unknown Rx Albuterol Mdi (or & Nicu Only) 2 puff IH QID PRN #1 inhalation 05/28/17 01/01/19 Unknown Rx [ProAir HFA Inhaler] Prednisone [predniSONE 10 mg 10 mg PO .TAPER #1 tab.ds.pk 05/28/17 01/01/19 Unknown Rx (6-Day Pack, 21 Tabs)] ALBUTEROL NEB's [Proventil 0.083% 2.5 mg IH TID PRN #1 box 10/09/18 01/01/19 Unknown Rx NEBS] methylPREDNISolone [Medrol 4MG 4 mg PO FS #1 tab.ds.pk 10/09/18 01/01/19 Unknown Rx DOSEPAK (21 tabs)] ALBUTEROL Inhaler (OR & NICU) 1 puff QDAY 01/01/19 01/01/19 12/30/18 History Ferrous Sulfate [Feosol 325 MG tab] 325 mg PO BID #60 tablet 01/02/19 Unknown Rx HYDROcodone/APAP 5-325 [[place] 1 each PO Q6HR PRN #30 tablet 01/02/19 Unknown Rx 5-325 mg TAB] Ibuprofen [Motrin 800 MG tab] 800 mg PO Q6H PRN #30 tablet 01/02/19 Unknown Rx Vit-Fe Fumar-FA [ 1 each PO QDAY #30 tablet 11/20/19 Unknown Rx Vitamin] Albuterol Mdi (or & Nicu Only) 2 puff IH QID PRN #8.5 gram 03/23/20 Unknown Rx [ProAir HFA Inhaler] Prednisone [predniSONE 10 mg 10 mg PO .TAPER #1 tab.ds.pk 03/23/20 Unknown Rx (6-Day Pack, 21 Tabs)] ED Physical Exam - General Limitations: No Limitations General appearance: alert, in no apparent distress - Head Head exam: Present: atraumatic, normocephalic - Eye Eye exam: Present: normal appearance - Neck Neck exam: Present: normal inspection - Respiratory Respiratory exam: Present: wheezes. Absent: respiratory distress, rales, rhonchi, stridor, chest wall tenderness, accessory muscle use, decreased breath sounds, prolonged expiratory - Cardiovascular Cardiovascular Exam: Present: regular rate, normal rhythm, normal heart sounds. Absent: bradycardia, tachycardia, irregular rhythm, systolic murmur, diastolic murmur, rubs, gallop - Extremities Exam Extremities exam: Present: full ROM - Back Exam Back exam: Present: normal inspection, full ROM - Neurological Exam Neurological exam: Present: alert, oriented X3, normal gait - Psychiatric Psychiatric exam: Present: normal affect, normal mood - Skin Skin exam: Present: warm, dry, intact, normal color. Absent: rash ED Course Vital Signs 03/23/20 03/23/20 02:56 03:10 Temperature 98.3 F Pulse Rate 86 Pulse Rate [ 71 Bilateral Throughout] Respiratory 22 Rate Respiratory 20 Rate [Bilateral Throughout] Blood Pressure 99/78 [Right] O2 Sat by Pulse 99 Oximetry - Reevaluation(s) Reevaluation #1: 03/23/20 03:30 Patient is speaking in full sentences with no signs of distress noted. ED Medical Decision Making - Radiology Data Referring Physician: PRABHA SMALL Patient Name: NIKA MACHADO Date of : 1985 Sex: Female Report Date: 2020-03-23 Report Status: Finalized [facility] [address] [place] [address] XRay Report Signed Patient: NIKA MACHADO MR#: [id number] : 1985 Acct:[id number] Age/Sex: 34 / F ADM Date: 03/23/20 Loc: ED Attending Dr: Ordering Physician: PRABHA SMALL NP Date of Service: 03/23/20 Procedure(s): XR chest 1V ap Accession Number(s): [id number] cc: PRABHA SMALL NP Fluoro Time In Minutes: CHEST 1 VIEW 03/23/2020 2:38 AM INDICATION / CLINICAL INFORMATION: SOB/wheezing. Asthma attack. COMPARISON: 05/18/17 FINDINGS: SUPPORT DEVICES: None. HEART / MEDIASTINUM: No significant abnormality. LUNGS / PLEURA: No significant pulmonary or pleural abnormality. No pneumothorax. ADDITIONAL FINDINGS: Incidental note of moderate sized right cervical rib. IMPRESSION: 1. No acute findings. No change. Signer Name: Karon Trevizo MD Signed: 03/23/2020 3:47 AM Workstation Name: [id number] Transcribed By: DT Dictated By: Evaristo Trevizo MD Electronically Authenticated By: Evaristo Trevizo MD Signed Date/Time: 03/23/20346 DD/ 5 TD/TT: - Medical Decision Making This is a 34-year-old female that presents with asthma exacerbation. Patient is stable and was examined by me. Chest x-ray has been obtained and dictated by the radiologist within normal limits. Patient is notified of the x-ray report with no questions noted by the patient. Patient did receive DuoNeb and steroids in the ED which patient the symptoms has resolved and subsided. Posttreatment and there is no wheezing upon auscultation. Patient is discharged with albuterol and prednisone. Patient was referred to Follow-up with a primary care doctor in 3-5 days or if symptoms worsen and continue return to emergency room as soon as possible. At time of discharge, the patient does not seem toxic or ill in appearance. No acute signs of distress noted. Patient agrees to discharge treatment plan of care. No further questions noted by the patient. This chart is dictated with using [employer] Dictation Program Critical care attestation.: If time is entered above; I have spent that time in minutes in the direct care of this critically ill patient, excluding procedure time. ED Disposition Clinical Impression: Asthma exacerbation Qualifiers: Asthma severity: mild Asthma persistence: intermittent Qualified Code(s): J45.21 - Mild intermittent asthma with (acute) exacerbation Disposition: DC-01 TO HOME OR SELFCARE Is pt being admited?: No Does the pt Need Aspirin: No Condition: Stable Instructions: Asthma, Adult Additional Instructions: Follow-up with a primary care doctor in 3-5 days or if symptoms worsen and continue return to emergency room as soon as possible. Prescriptions: Prednisone [predniSONE 10 mg (6-Day Pack, 21 Tabs)] 10 mg PO .TAPER #1 tab.ds.pk Albuterol Mdi (or & Nicu Only) [ProAir HFA Inhaler] 2 puff IH QID PRN #8.5 gram PRN Reason: Shortness Of Breath Referrals: PRIMARY CAREMD [Referring] - 3-5 Days CHIQUIS THAYER MD [Staff Physician] - 3-5 Days Forms: Work/School Release Form(ED) Time of Disposition: 03:57
--- NOTE | 2020-03-23 03:51 | XRay Report ---
CHEST 1 VIEW 03/23/2020 2:38 AM INDICATION / CLINICAL INFORMATION: SOB/wheezing. Asthma attack. COMPARISON: 05/18/17 FINDINGS: SUPPORT DEVICES: None. HEART / MEDIASTINUM: No significant abnormality. LUNGS / PLEURA: No significant pulmonary or pleural abnormality. No pneumothorax. ADDITIONAL FINDINGS: Incidental note of moderate sized right cervical rib. IMPRESSION: 1. No acute findings. No change. Signer Name: Karon Trevizo MD Signed: 03/23/2020 3:47 AM Workstation Name: [id number]
[2020-03-23 04:10] VITALS: BP 125/74
== END 2020-03-23 04:08 | disposition home or self-care (01) ==
LOC: ED 02:39
DX: J45.901 Unspecified asthma with (acute) exacerbation (principal); Z79.899 Other long term (current) drug therapy; Z98.890 Other specified postprocedural states
CPT/HCPCS: 71045; 94640; 96372; 99283; J1100; 94644

== ENCOUNTER 2020-06-01 19:10 | Emergency (ER) | payer OTHER ==
[2020-06-01 21:43] VITALS: BP 143/80
[2020-06-01] MEDS ORDERED: methylPREDNISolone Sod Succinate 125 MG/2 ML INJ IM ONE (21:44)
[2020-06-01] MEDS ORDERED: IPRATROPIUM/ALBUTEROL SULFATE 3 ML AMPUL.NEB IH ONE (21:44)
[2020-06-01] MEDS ORDERED: ALBUTEROL 2.5 MG/3 ML NEBU IH ONE (21:44)
--- NOTE | 2020-06-01 23:21 | XRay Report ---
CHEST 2 VIEWS INDICATION: ASTHMA, DYSPNEA. COMPARISON: 03/23/2020 FINDINGS: SUPPORT DEVICES: None. HEART: Within normal limits. LUNGS/PLEURA: No acute air space or interstitial disease. No pneumothorax. ADDITIONAL FINDINGS: None. IMPRESSION: 1. No acute findings. Signer Name: Jasiel Lopez MD Signed: 06/01/2020 11:17 PM Workstation Name: [id number]
--- NOTE | 2020-06-01 23:38 | Emergency Department Report ---
ED Shortness of Breath HPI - General Chief Complaint: Dyspnea/Respdistress Stated Complaint: ASTHMA Source: patient Mode of arrival: Ambulatory Limitations: No Limitations - History of Present Illness Initial Comments: Patient is a 35-year-old -[place] female with a history of asthma presents to the ED with complaint of acute onset persistent nasal and sinus congestion, shortness of breath, persistent dry cough with pleuritic chest wall pain and wheezing for the last 2 days, worse in the last 12 hours. Patient states that she has been using her albuterol inhaler multiple times in the last 12 hours but that she has not had any relief from the treatment. Patient states that no one else at home is at similar symptoms. Patient denies dizziness, syncope, fever, chills, nausea and vomiting, abdominal pain, chest pain, neck pain, back pain, dysuria, urinary frequency and urgency or sore throat. MD Complaint: shortness of breath, cough, "asthma attack" -: Sudden, days(s) (2) Severity: severe Pain Scale: 7 Quality: other Consistency: constant (Chest tightness) Improves With: nothing Worsens With: nothing Known History Of: asthma Context: recent URI, allergen exposure Associated Symptoms: cough Treatments Prior to Arrival: bronchodilator - Related Data Home Oxygen Therapy: No Home Medications Medication Instructions Recorded Confirmed Last Taken ALBUTEROL Inhaler (OR & NICU) 1 puff QDAY 01/01/19 01/01/19 12/30/18 Previous Rx's Medication Instructions Recorded Last Taken Type Albuterol Mdi (or & Nicu Only) 2 puff IH QID PRN #1 inhalation 01/30/13 Unknown Rx [ProAir HFA Inhaler] predniSONE [Deltasone] 50 mg PO QDAY #4 tab 01/30/13 Unknown Rx Butalbit/Acetamin/Caff/Codeine 1 cap PO Q6HR PRN #14 cap 09/11/14 Unknown Rx [Fioricet/Codeine 95-935-46-30] Meclizine [Antivert] 25 mg PO TID PRN #10 tablet 09/11/14 Unknown Rx Albuterol Mdi (or & Nicu Only) 2 puff IH QID PRN #1 inhalation 05/28/17 Unknown Rx [ProAir HFA Inhaler] Prednisone [predniSONE 10 mg 10 mg PO .TAPER #1 tab.ds.pk 05/28/17 Unknown Rx (6-Day Pack, 21 Tabs)] ALBUTEROL NEB's [Proventil 0.083% 2.5 mg IH TID PRN #1 box 10/09/18 Unknown Rx NEBS] Ferrous Sulfate [Feosol 325 MG tab] 325 mg PO BID #60 tablet 01/02/19 Unknown Rx HYDROcodone/APAP 5-325 [[place] 1 each PO Q6HR PRN #30 tablet 01/02/19 Unknown Rx 5-325 mg TAB] Ibuprofen [Motrin 800 MG tab] 800 mg PO Q6H PRN #30 tablet 01/02/19 Unknown Rx Vit-Fe Fumar-FA [ 1 each PO QDAY #30 tablet 01/02/19 Unknown Rx Vitamin] Prednisone [predniSONE 10 mg 10 mg PO .TAPER #1 tab.ds.pk 03/23/20 Unknown Rx (6-Day Pack, 21 Tabs)] Albuterol Mdi (or & Nicu Only) 2 puff IH QID PRN #8.5 gram 06/01/20 Unknown Rx [ProAir HFA Inhaler] Azithromycin [Zithromax Z-EDWINA] 250 mg PO DAILY #6 tablet 06/01/20 Unknown Rx Cetirizine HCl [Zyrtec 10mg tab] 10 mg PO DAILY #30 tablet 06/01/20 Unknown Rx Ibuprofen [Motrin 600 MG tab] 600 mg PO Q8H PRN #30 tablet 06/01/20 Unknown Rx methylPREDNISolone [Medrol 4MG 4 mg PO DAILY #21 tab.ds.pk 06/01/20 Unknown Rx DOSEPAK (21 tabs)] Allergies Allergy/AdvReac Type Severity Reaction Status Date / Time No Known Allergies Allergy Unverified 01/30/13 09:59 ED Review of Systems ROS: Stated complaint: ASTHMA Other details as noted in HPI Constitutional: denies: chills, fever Eyes: denies: eye pain, eye discharge, vision change ENT: congestion. denies: ear pain, throat pain Respiratory: cough, shortness of breath, wheezing Cardiovascular: denies: chest pain, palpitations Endocrine: no symptoms reported Gastrointestinal: denies: abdominal pain, nausea, diarrhea Genitourinary: denies: urgency, dysuria, discharge Musculoskeletal: denies: back pain, joint swelling, arthralgia Skin: denies: rash, lesions Neurological: denies: headache, weakness, paresthesias Psychiatric: denies: anxiety, depression Hematological/Lymphatic: denies: easy bleeding, easy bruising ED Past Medical Hx - Past Medical History Hx Hypertension: No Hx Diabetes: No Hx Deep Vein Thrombosis: No Hx Renal Disease: No Hx Sickle Cell Disease: No Hx Seizures: No Hx Asthma: Yes (last attack 11/2018) Hx HIV: No - Surgical History Additional Surgical History: - Social History Smoking Status: Never Smoker - Medications Home Medications: Home Medications Medication Instructions Recorded Confirmed Last Taken Type Albuterol Mdi (or & Nicu Only) 2 puff IH QID PRN #1 inhalation 01/30/13 01/01/19 Unknown Rx [ProAir HFA Inhaler] predniSONE [Deltasone] 50 mg PO QDAY #4 tab 01/30/13 01/01/19 Unknown Rx Butalbit/Acetamin/Caff/Codeine 1 cap PO Q6HR PRN #14 cap 09/11/14 01/01/19 Unknown Rx [Fioricet/Codeine [id number]] Meclizine [Antivert] 25 mg PO TID PRN #10 tablet 09/11/14 01/01/19 Unknown Rx Albuterol Mdi (or & Nicu Only) 2 puff IH QID PRN #1 inhalation 05/28/17 01/01/19 Unknown Rx [ProAir HFA Inhaler] Prednisone [predniSONE 10 mg 10 mg PO .TAPER #1 tab.ds.pk 05/28/17 01/01/19 Unknown Rx (6-Day Pack, 21 Tabs)] ALBUTEROL NEB's [Proventil 0.083% 2.5 mg IH TID PRN #1 box 10/09/18 01/01/19 Unknown Rx NEBS] ALBUTEROL Inhaler (OR & NICU) 1 puff QDAY 01/01/19 01/01/19 12/30/18 History Ferrous Sulfate [Feosol 325 MG tab] 325 mg PO BID #60 tablet 01/02/19 Unknown Rx HYDROcodone/APAP 5-325 [[place] 1 each PO Q6HR PRN #30 tablet 01/02/19 Unknown Rx 5-325 mg TAB] Ibuprofen [Motrin 800 MG tab] 800 mg PO Q6H PRN #30 tablet 01/02/19 Unknown Rx Vit-Fe Fumar-FA [ 1 each PO QDAY #30 tablet 01/02/19 Unknown Rx Vitamin] Prednisone [predniSONE 10 mg 10 mg PO .TAPER #1 tab.ds.pk 03/23/20 Unknown Rx (6-Day Pack, 21 Tabs)] Albuterol Mdi (or & Nicu Only) 2 puff IH QID PRN #8.5 gram 06/01/20 Unknown Rx [ProAir HFA Inhaler] Azithromycin [Zithromax Z-EDWINA] 250 mg PO DAILY #6 tablet 06/01/20 Unknown Rx Cetirizine HCl [Zyrtec 10mg tab] 10 mg PO DAILY #30 tablet 06/01/20 Unknown Rx Ibuprofen [Motrin 600 MG tab] 600 mg PO Q8H PRN #30 tablet 06/01/20 Unknown Rx methylPREDNISolone [Medrol 4MG 4 mg PO DAILY #21 tab.ds.pk 06/01/20 Unknown Rx DOSEPAK (21 tabs)] ED Physical Exam - General Limitations: No Limitations General appearance: alert, in no apparent distress - Head Head exam: Present: atraumatic, normocephalic, normal inspection - Eye Eye exam: Present: normal appearance, PERRL, EOMI Pupils: Present: normal accommodation - ENT ENT exam: Present: normal orophraynx, mucous membranes moist, TM's normal bilaterally, normal external ear exam, other (Grossly congested nasal passages) - Neck Neck exam: Present: normal inspection, full ROM - Respiratory Respiratory exam: Present: wheezes (Diffuse coarse wheezes throughout). Absent: respiratory distress, chest wall tenderness, accessory muscle use, decreased breath sounds - Cardiovascular Cardiovascular Exam: Present: regular rate, normal rhythm, normal heart sounds. Absent: systolic murmur, diastolic murmur, rubs, gallop - GI/Abdominal GI/Abdominal exam: Present: soft, normal bowel sounds. Absent: distended, tenderness, guarding, hyperactive bowel sounds, hypoactive bowel sounds, organomegaly - Extremities Exam Extremities exam: Present: normal inspection, full ROM - Back Exam Back exam: Present: normal inspection, full ROM. Absent: tenderness, CVA tenderness (R), CVA tenderness (L), muscle spasm, paraspinal tenderness, vertebral tenderness - Neurological Exam Neurological exam: Present: alert, oriented X3, CN II-XII intact, normal gait, reflexes normal - Psychiatric Psychiatric exam: Present: normal affect, normal mood - Skin Skin exam: Present: warm, dry, intact, normal color. Absent: rash ED Course Vital Signs 06/01/20 06/01/20 21:40 22:11 Temperature 98.7 F Pulse Rate 84 Pulse Rate [ 82 Bilateral Throughout] Respiratory 18 Rate Respiratory 18 Rate [Bilateral Throughout] Blood Pressure 143/80 O2 Sat by Pulse 98 Oximetry ED Medical Decision Making - Radiology Data [facility] [address] [place] [address] XRay Report Signed Patient: NIKA MACHADO MR#: [id number] : 1985 Acct:[id number] Age/Sex: 35 / F ADM Date: 06/01/20 Loc: ED Attending Dr: Ordering Physician: ROLANDO HERNANDEZ Date of Service: 06/01/20 Procedure(s): XR chest routine 2V Accession Number(s): [id number] cc: ROLANDO HERNANDEZ Fluoro Time In Minutes: CHEST 2 VIEWS INDICATION: ASTHMA, DYSPNEA. COMPARISON: 03/23/2020 FINDINGS: SUPPORT DEVICES: None. HEART: Within normal limits. LUNGS/PLEURA: No acute air space or interstitial disease. No pneumothorax. ADDITIONAL FINDINGS: None. IMPRESSION: 1. No acute findings. Signer Name: Jasiel Lopez MD Signed: 06/01/2020 11:17 PM Workstation Name: [id number] Transcribed By: JW Dictated By: Jasiel Lopez MD Electronically Authenticated By: Jasiel Lopez MD Signed Date/Time: 06/01/202316 DD/ 15 TD/TT: - Medical Decision Making This is a 35-year-old -[place] female with a history of asthma presents to the ED with complaint of acute onset persistent nasal and sinus congestion, shortness of breath, persistent dry cough with pleuritic chest wall pain and wheezing for the last 2 days, worse in the last 12 hours. Patient states that she has been using her albuterol inhaler multiple times in the last 12 hours but that she has not had any relief from the treatment. Patient states that no one else at home is at similar symptoms. In the ED, patient is alert and oriented x3 and is not in any distress. Patient was treated in the ED with Solu-Medrol 125 mg intramuscular injection, also given DuoNeb and albuterol nebulizer treatments in the ED. Chest x-ray shows no acute cardiopulmonary abnormalities or pneumonitis. On reevaluation, patient wheezing resolved and patient felt better, with oxygen saturation of 99% in room air. Patient was discharged home on medications and advised to follow-up with her primary care physician in 3 to 5 days for reevaluation or return to the ED immediately if symptoms get worse. - Differential Diagnosis Asthma; bronchitis; pneumonia; URI; allergic rhinitis Critical care attestation.: If time is entered above; I have spent that time in minutes in the direct care of this critically ill patient, excluding procedure time. ED Disposition Clinical Impression: Acute bronchitis with asthma with acute exacerbation, Shortness of breath, Acute upper respiratory infection Disposition: TO HOME OR SELFCARE Is pt being admited?: No Does the pt Need Aspirin: No Condition: Stable Instructions: Shortness of Breath, Adult, [id number], Acute Bronchitis, Adult, Thdf-rr-Ptdh, Upper Respiratory Infection, Adult, Gzqi-[id number], Asthma, Adult, Xfzy-ln-Nxdt, Acute Bronchitis (ED) Additional Instructions: Your chest x-ray shows no acute cardiopulmonary abnormalities or pneumonitis. Your symptoms are likely due to acute asthma attack characterized by allergic rhinitis and bronchitis. Therefore take medication with food, drink plenty of fluids, and follow-up with your primary care physician in 2 to 3 days for reevaluation. Return to the ED immediately if symptoms get worse. Prescriptions: methylPREDNISolone [Medrol 4MG DOSEPAK (21 tabs)] 4 mg PO DAILY #21 tab.ds.pk Ibuprofen [Motrin 600 MG tab] 600 mg PO Q8H PRN #30 tablet PRN Reason: Pain Albuterol Mdi (or & Nicu Only) [ProAir HFA Inhaler] 2 puff IH QID PRN #8.5 gram PRN Reason: Shortness Of Breath Azithromycin [Zithromax Z-EDWINA] 250 mg PO DAILY #6 tablet Cetirizine HCl [Zyrtec 10mg tab] 10 mg PO DAILY #30 tablet Referrals: KULWINDER RUDOLPH MD [Staff Physician] - 3-5 Days Time of Disposition: 23:36 Print Language: GEORGIAN
== END 2020-06-02 02:00 | disposition home or self-care (01) ==
LOC: ED 19:10
DX: J45.901 Unspecified asthma with (acute) exacerbation (principal); J06.9 Acute upper respiratory infection, unspecified; R06.02 Shortness of breath; Z98.890 Other specified postprocedural states; Z79.1 Long term (current) use of non-steroidal anti-inflammatories (NSAID); Z79.899 Other long term (current) drug therapy
CPT/HCPCS: 71046; 94644

== ENCOUNTER 2020-10-24 17:05 | Emergency (ER) | payer OTHER ==
[2020-10-24 18:10] VITALS: BP 128/75
[2020-10-24] MEDS ORDERED: KETOROLAC 30 MG/1 ML INJ IM ONE (20:13)
[2020-10-24] MEDS ORDERED: dexAMETHasone 20 MG/5 ML VIAL IM ONE (20:13)
--- NOTE | 2020-10-24 20:27 | Emergency Department Report ---
ED Neck Pain/Injury HPI - General Chief Complaint: Neck Pain/Injury Stated Complaint: SNIFF NECK/PAIN IN SHOULDER Mode of arrival: Ambulatory Limitations: No Limitations - History of Present Illness Initial Comments: Patient is a 35-year-old -[place] female with a history of asthma who presents to the ED with persistent right lateral neck pain that radiates to the right arm, right sided posterior mid and upper thoracic area and tingling and numbness sensation on the right arm and fingers for the last 8 months intermittently. Patient states that she has a previously been treated for the same by her primary care physician who gave her cyclobenzaprine 10 mg tablet to take as needed but the patient states that in the last 3 months the pain has been persistent despite taking the muscle relaxant. Patient states that the pain is especially worse with any active range of motion of her neck or her right arm or shoulder. Patient denies chest pain, dizziness, syncope, traumatic injury, heavy lifting, nausea and vomiting, headache, fall, abdominal pain, palpitations, shortness of breath, fever and chills or bilateral upper extremity weakness. MD Complaint: neck pain (right lateral ), upper back pain, other (right arm pain with tingling sensation) -: Gradual, month(s) (9) Place: home Radiation: right lateral, right shoulder, upper back, right upper extremity Severity: severe, intermittent, constant Severity scale (0 -10): 7 Quality: burning, aching Consistency: intermittent Improves With: none Worsens With: movement of extremity, movement of neck Context: unknown Associated Symptoms: numbness, tingling. denies: headache, fever, weakness, vertigo, difficulty walking, swollen glands, difficulty swallowing, nausea, vomiting Treatments Prior to Arrival: other (flexeril) - Related Data Home Medications Medication Instructions Recorded Confirmed Last Taken ALBUTEROL Inhaler (OR & NICU) 1 puff QDAY 01/01/19 01/01/19 12/30/18 Previous Rx's Medication Instructions Recorded Last Taken Type Albuterol Mdi (or & Nicu Only) 2 puff IH QID PRN #1 inhalation 01/30/13 Unknown Rx [ProAir HFA Inhaler] predniSONE [Deltasone] 50 mg PO QDAY #4 tab 01/30/13 Unknown Rx Butalbit/Acetamin/Caff/Codeine 1 cap PO Q6HR PRN #14 cap 09/11/14 Unknown Rx [Fioricet/Codeine 87-680-20-30] Meclizine [Antivert] 25 mg PO TID PRN #10 tablet 09/11/14 Unknown Rx Albuterol Mdi (or & Nicu Only) 2 puff IH QID PRN #1 inhalation 05/28/17 Unknown Rx [ProAir HFA Inhaler] Prednisone [predniSONE 10 mg 10 mg PO .TAPER #1 tab.ds.pk 05/28/17 Unknown Rx (6-Day Pack, 21 Tabs)] ALBUTEROL NEB's [Proventil 0.083% 2.5 mg IH TID PRN #1 box 10/09/18 Unknown Rx NEBS] Ferrous Sulfate [Feosol 325 MG tab] 325 mg PO BID #60 tablet 01/02/19 Unknown Rx HYDROcodone/APAP 5-325 [[place] 1 each PO Q6HR PRN #30 tablet 01/02/19 Unknown Rx 5-325 mg TAB] Ibuprofen [Motrin 800 MG tab] 800 mg PO Q6H PRN #30 tablet 01/02/19 Unknown Rx Vit-Fe Fumar-FA [ 1 each PO QDAY #30 tablet 01/02/19 Unknown Rx Vitamin] Prednisone [predniSONE 10 mg 10 mg PO .TAPER #1 tab.ds.pk 03/23/20 Unknown Rx (6-Day Pack, 21 Tabs)] Albuterol Mdi (or & Nicu Only) 2 puff IH QID PRN #8.5 gram 06/01/20 Unknown Rx [ProAir HFA Inhaler] Azithromycin [Zithromax Z-EDWINA] 250 mg PO DAILY #6 tablet 06/01/20 Unknown Rx Cetirizine HCl [Zyrtec 10mg tab] 10 mg PO DAILY #30 tablet 06/01/20 Unknown Rx Ibuprofen [Motrin 600 MG tab] 600 mg PO Q8H PRN #30 tablet 06/01/20 Unknown Rx methylPREDNISolone [Medrol 4MG 4 mg PO DAILY #21 tab.ds.pk 06/01/20 Unknown Rx DOSEPAK (21 tabs)] Baclofen 20 mg PO QHS PRN #20 tablet 10/24/20 Unknown Rx Gabapentin 300 mg PO Q12H #60 cap 10/24/20 Unknown Rx Naproxen 500 mg PO Q12H PRN #30 tablet 10/24/20 Unknown Rx predniSONE [Deltasone] 60 mg PO QDAY #15 tab 10/24/20 Unknown Rx Allergies Allergy/AdvReac Type Severity Reaction Status Date / Time No Known Allergies Allergy Verified 10/24/20 18:10 ED Review of Systems ROS: Stated complaint: SNIFF NECK/PAIN IN SHOULDER Other details as noted in HPI Constitutional: denies: chills, fever Eyes: denies: eye pain, eye discharge, vision change ENT: denies: ear pain, throat pain Respiratory: denies: cough, shortness of breath, wheezing Cardiovascular: denies: chest pain, palpitations Endocrine: no symptoms reported Gastrointestinal: denies: abdominal pain, nausea, diarrhea Genitourinary: denies: urgency, dysuria, discharge Musculoskeletal: back pain (Right sided mid and upper posterior thoracic pain), arthralgia (Right upper arm and shoulder pain), other (Right lateral neck pain). denies: joint swelling Skin: denies: rash, lesions Neurological: denies: headache, weakness, paresthesias Psychiatric: denies: anxiety, depression Hematological/Lymphatic: denies: easy bleeding, easy bruising ED Past Medical Hx - Past Medical History Hx Hypertension: No Hx Diabetes: No Hx Deep Vein Thrombosis: No Hx Renal Disease: No Hx Sickle Cell Disease: No Hx Seizures: No Hx Asthma: Yes (last attack 11/2018) Hx HIV: No - Surgical History Additional Surgical History: - Social History Smoking Status: Never Smoker - Medications Home Medications: Home Medications Medication Instructions Recorded Confirmed Last Taken Type Albuterol Mdi (or & Nicu Only) 2 puff IH QID PRN #1 inhalation 01/30/13 01/01/19 Unknown Rx [ProAir HFA Inhaler] predniSONE [Deltasone] 50 mg PO QDAY #4 tab 01/30/13 01/01/19 Unknown Rx Butalbit/Acetamin/Caff/Codeine 1 cap PO Q6HR PRN #14 cap 09/11/14 01/01/19 Unknown Rx [Fioricet/Codeine 85-736-17-30] Meclizine [Antivert] 25 mg PO TID PRN #10 tablet 09/11/14 01/01/19 Unknown Rx Albuterol Mdi (or & Nicu Only) 2 puff IH QID PRN #1 inhalation 05/28/17 01/01/19 Unknown Rx [ProAir HFA Inhaler] Prednisone [predniSONE 10 mg 10 mg PO .TAPER #1 tab.ds.pk 05/28/17 01/01/19 Unknown Rx (6-Day Pack, 21 Tabs)] ALBUTEROL NEB's [Proventil 0.083% 2.5 mg IH TID PRN #1 box 10/09/18 01/01/19 Unknown Rx NEBS] ALBUTEROL Inhaler (OR & NICU) 1 puff QDAY 01/01/19 01/01/19 12/30/18 History Ferrous Sulfate [Feosol 325 MG tab] 325 mg PO BID #60 tablet 01/02/19 Unknown Rx HYDROcodone/APAP 5-325 [[place] 1 each PO Q6HR PRN #30 tablet 01/02/19 Unknown Rx 5-325 mg TAB] Ibuprofen [Motrin 800 MG tab] 800 mg PO Q6H PRN #30 tablet 01/02/19 Unknown Rx Vit-Fe Fumar-FA [ 1 each PO QDAY #30 tablet 01/02/19 Unknown Rx Vitamin] Prednisone [predniSONE 10 mg 10 mg PO .TAPER #1 tab.ds.pk 03/23/20 Unknown Rx (6-Day Pack, 21 Tabs)] Albuterol Mdi (or & Nicu Only) 2 puff IH QID PRN #8.5 gram 06/01/20 Unknown Rx [ProAir HFA Inhaler] Azithromycin [Zithromax Z-EDWINA] 250 mg PO DAILY #6 tablet 06/01/20 Unknown Rx Cetirizine HCl [Zyrtec 10mg tab] 10 mg PO DAILY #30 tablet 06/01/20 Unknown Rx Ibuprofen [Motrin 600 MG tab] 600 mg PO Q8H PRN #30 tablet 06/01/20 Unknown Rx methylPREDNISolone [Medrol 4MG 4 mg PO DAILY #21 tab.ds.pk 06/01/20 Unknown Rx DOSEPAK (21 tabs)] Baclofen 20 mg PO QHS PRN #20 tablet 10/24/20 Unknown Rx Gabapentin 300 mg PO Q12H #60 cap 10/24/20 Unknown Rx Naproxen 500 mg PO Q12H PRN #30 tablet 10/24/20 Unknown Rx predniSONE [Deltasone] 60 mg PO QDAY #15 tab 10/24/20 Unknown Rx ED Physical Exam - General Limitations: No Limitations General appearance: alert, in no apparent distress - Head Head exam: Present: atraumatic, normocephalic, normal inspection - Eye Eye exam: Present: normal appearance, PERRL, EOMI Pupils: Present: normal accommodation - ENT ENT exam: Present: normal exam, normal orophraynx, mucous membranes moist, TM's normal bilaterally, normal external ear exam - Neck Neck exam: Present: normal inspection, tenderness (Palpable reproducible right lateral cervical trapezius and sternocleidomastoid muscle tenderness), full ROM. Absent: lymphadenopathy - Respiratory Respiratory exam: Present: normal lung sounds bilaterally. Absent: respiratory distress, wheezes, rales, rhonchi, chest wall tenderness, accessory muscle use, decreased breath sounds - Cardiovascular Cardiovascular Exam: Present: regular rate, normal rhythm, normal heart sounds. Absent: systolic murmur, diastolic murmur, rubs, gallop - GI/Abdominal GI/Abdominal exam: Present: soft, normal bowel sounds. Absent: tenderness, guarding, rebound, hyperactive bowel sounds, hypoactive bowel sounds, organomegaly, mass - Extremities Exam Extremities exam: Present: normal inspection, full ROM, tenderness (Palpable right shoulder and upper arm tenderness), normal capillary refill. Absent: pedal edema, joint swelling, calf tenderness - Back Exam Back exam: Present: normal inspection, full ROM. Absent: tenderness, CVA tenderness (R), CVA tenderness (L), muscle spasm, paraspinal tenderness - Neurological Exam Neurological exam: Present: alert, oriented X3, CN II-XII intact, normal gait, reflexes normal - Psychiatric Psychiatric exam: Present: normal affect, normal mood - Skin Skin exam: Present: warm, dry, intact, normal color. Absent: rash ED Course Vital Signs 10/24/20 18:08 Temperature 98.3 F Pulse Rate 71 Respiratory 16 Rate Blood Pressure 128/75 [Left] O2 Sat by Pulse 100 Oximetry ED Medical Decision Making - Medical Decision Making This is a 35-year-old -[place] female with a history of asthma who presents to the ED with persistent right lateral neck pain that radiates to the right arm, right sided posterior mid and upper thoracic area and tingling and numbness sensation on the right arm and fingers for the last 8 months intermittently. Patient states that she has a previously been treated for the same by her primary care physician who gave her cyclobenzaprine 10 mg tablet to take as needed but the patient states that in the last 3 months the pain has been persistent despite taking the muscle relaxant. Patient states that the pain is especially worse with any active range of motion of her neck or her r ight arm or shoulder. In the ED, patient is alert and oriented x3 and is not in any distress. Patient is hemodynamically stable. Patient was treated for pain in the ED. Based on the history and physical exam findings, the patient symptoms are likely due to cervical radiculopathy, versus torticollis or cervical muscle strain. Patient was therefore discharged home on pain medications and advised to follow-up with her primary care physician in 7 to 10 days for reevaluation. Patient was advised return to ED immediately if symptoms get worse. - Differential Diagnosis Cervical strain; cervical radiculopathy; cervical muscle spasm; torticollis Critical care attestation.: If time is entered above; I have spent that time in minutes in the direct care of this critically ill patient, excluding procedure time. ED Disposition Clinical Impression: Cervical radiculopathy, Cervical paraspinal muscle spasm Strain of sternocleidomastoid muscle Qualifiers: Encounter type: initial encounter Qualified Code(s): S16.1XXA - Strain of muscle, fascia and tendon at neck level, initial encounter Disposition: 01 HOME / SELF CARE / HOMELESS Is pt being admited?: No Does the pt Need Aspirin: No Condition: Stable Instructions: Muscle Cramps and Spasms, [id number], Cervical Strain and Sprain Rehab-SportsMed, Cervical Radiculopathy, Ifxa-de-Evua Additional Instructions: Yes symptoms are likely due to cervical radiculopathy or cervical muscle strain. Therefore take medications with food, drink plenty of fluids and follow-up with your primary care physician in 7 to 10 days for reevaluation. Return to the ED immediately if symptoms get worse. Prescriptions: Baclofen 20 mg PO QHS PRN #20 tablet PRN Reason: Muscle Spasm predniSONE [Deltasone] 60 mg PO QDAY #15 tab Gabapentin 300 mg PO Q12H #60 cap Naproxen 500 mg PO Q12H PRN #30 tablet PRN Reason: Pain , Severe (7-10) Referrals: KULWINDER RUDOLPH MD [Staff Physician] - 7-10 days Time of Disposition: 20:30 Print Language: CROATIAN
== END 2020-10-24 21:03 | disposition home or self-care (01) ==
LOC: ED 17:05
DX: S16.1XXA Strain of muscle, fascia and tendon at neck level, initial encounter (principal); M54.12 Radiculopathy, cervical region; M62.838 Other muscle spasm; J45.909 Unspecified asthma, uncomplicated; X58.XXXA Exposure to other specified factors, initial encounter; Y93.89 Activity, other specified; Y92.89 Other specified places as the place of occurrence of the external cause; Y99.8 Other external cause status
CPT/HCPCS: 96372; 99282; J1100; J1885